=== PATIENT | female | born 1990 | race African-American/Black ===

== ENCOUNTER 2023-08-13 10:52 | Emergency (ER) | payer MEDICAID ==
[~2023-08-13] VITALS: Ht 170.2 cm; Wt 57.0 kg
[2023-08-13 11:05] VITALS: BP 145/105; PULSE 106; RESP 16; TEMP 98.1; O2SAT 98
[2023-08-13] MEDS ORDERED: ONDANSETRON HCL 4MG/2ML INJ IV STA (11:13)
[2023-08-13] MEDS: SODIUM CHLORIDE 0.9% 1,000 ML IV ONE (11:15)
[2023-08-13] MEDS ORDERED: KETOROLAC 15MG/ML VIAL IV ONE (11:45)
[2023-08-13] MEDS ORDERED: FAMOTIDINE 20MG/2ML VIAL IV ONE (11:45)
[2023-08-13 11:53] LABS: BASOPHILS % 0.6 % (0.0-2.0); DIFFERENTIAL COMMENT 0; EOSINOPHILS % 0.5 % (0.0-5.0); HEMATOCRIT. 36.5 % (36.0-48.0); HEMOGLOBIN. 11.7 g/dL (12.0-16.0); LYMPHOCYTES % 21.8 % (20.0-50.0); MEAN CORPUSCULAR HEMOGLOBIN 25.4 pg (28.0-32.0); MEAN CORPUSCULAR HGB CONC 32.1 g/dL (31.0-37.0); MEAN CORPUSCULAR VOLUME 78.9 fL (81.0-99.0); MEAN PLATELET VOLUME 9.1 fl (7.4-10.4); NEUTROPHILS % 68.1 % (40.0-76.0); PLATELET 313 x1000/uL (130-400); RED BLOOD CELL COUNT 4.62 mill/uL (4.2-5.4); RED CELL DISTRIBUTION WIDTH 15.2 % (11.6-14.6)
[2023-08-13 12:09] LABS: ALANINE AMINOTRANSFERASE < 7 IU/L (10-49); ASPARTATE AMINOTRANSFERASE 16 IU/L (<34); BILIRUBIN TOTAL 0.5 mg/dL (0.1-1.0); CALCIUM 9.5 mg/dL (8.7-10.4); CARBON DIOXIDE 27 mEq/L (21-32); CHLORIDE 103 mEq/L (98-107); CREATININE 0.8 mg/dL (0.6-1.0); GLUCOSE 90 mg/dL (70-105); POTASSIUM 3.8 mEq/L (3.5-5.1); PROTEIN TOTAL 8.7 g/dL (6.0-8.3); SODIUM 140 mEq/L (136-145); UREA NITROGEN BLOOD < 5 mg/dL (9-23)
[2023-08-13 12:16] LABS: HCG SCREEN NEGATIVE
[2023-08-13] MEDS: KETOROLAC 15MG/ML VIAL IV NR (13:23)
[2023-08-13] MEDS: ONDANSETRON HCL 4MG/2ML INJ IV NR (13:23)
[2023-08-13] MEDS: FAMOTIDINE 20MG/2ML VIAL IV NR (13:23)
[2023-08-13 14:43] LABS: CLARITY URINE CLEAR (CLEAR); COLOR URINE YELLOW (YELLOW); GLUCOSE URINE NEGATIVE (NEGATIVE); KETONES URINE 1+ (NEGATIVE); LEUKOCYTE ESTERASE URINE 1+ (NEGATIVE); NITRITE URINE NEGATIVE (NEGATIVE); OCCULT BLOOD URINE NEGATIVE (NEGATIVE); PH URINE 7.5 (4.5-8.0); PROTEIN URINE NEGATIVE (NEGATIVE)
[2023-08-13 14:52] LABS: BACTERIA URINE 1+; RBC URINE 0-2 /hpf (0-2); SQUAMOUS EPITHELIAL CELL URINE 2+ /lpf (RARE/1+); YEAST URINE NONE SEEN
[2023-08-13] MEDS ORDERED: NITR-87 MT (14:56)
[2023-08-13] MEDS ORDERED: ONDA4TAB50 MT (14:56)
[2023-08-13] MEDS ORDERED: ACET-2708 MT (14:56)
[2023-08-14] MEDS ORDERED: OLAN5TAB3 MT (03:29)
== END 2023-08-13 15:19 | disposition home or self-care (01) ==
LOC: ER 10:52
DX: R11.0 Nausea (principal); R19.7 Diarrhea, unspecified; R82.71 Bacteriuria; Z88.5 Allergy status to narcotic agent
CPT/HCPCS: 99285; 96374; 76705; 96375; 96361; 80053; 81003; 84703; 83690; 85025; 36415; J3490; J1885; J2405; J7030

== ENCOUNTER 2023-08-13 18:03 | Emergency (ER) | payer MEDICAID ==
[~2023-08-13] VITALS: Ht 170.2 cm; Wt 61.0 kg
[~2023-08-13 18:03] MED LIST: ACET-2708 MT; NITR-87 MT; ONDA4TAB50 MT
[2023-08-13 18:12] VITALS: TEMP 98.6; O2SAT 100
[2023-08-13 23:55] LABS: BASOPHILS % 0.7 % (0.0-2.0); DIFFERENTIAL COMMENT 0; EOSINOPHILS % 0.8 % (0.0-5.0); HEMATOCRIT. 34.6 % (36.0-48.0); HEMOGLOBIN. 11.2 g/dL (12.0-16.0); MEAN CORPUSCULAR HEMOGLOBIN 25.1 pg (28.0-32.0); MEAN CORPUSCULAR HGB CONC 32.3 g/dL (31.0-37.0); MEAN CORPUSCULAR VOLUME 77.7 fL (81.0-99.0); MEAN PLATELET VOLUME 8.7 fl (7.4-10.4); MONOCYTES % 9.1 % (2.0-8.0); NEUTROPHILS % 47.4 % (40.0-76.0); PLATELET 300 x1000/uL (130-400); RED BLOOD CELL COUNT 4.46 mill/uL (4.2-5.4); RED CELL DISTRIBUTION WIDTH 14.6 % (11.6-14.6)
[2023-08-14 00:12] LABS: ACETAMINOPHEN < 2 ug/mL (10-30); ALANINE AMINOTRANSFERASE < 7 IU/L (10-49); ALBUMIN 4.8 g/dL (3.2-4.8); ASPARTATE AMINOTRANSFERASE 15 IU/L (<34); BILIRUBIN TOTAL 0.6 mg/dL (0.1-1.0); CALCIUM 9.5 mg/dL (8.7-10.4); CARBON DIOXIDE 26 mEq/L (21-32); CHLORIDE 103 mEq/L (98-107); CREATININE 0.9 mg/dL (0.6-1.0); GLUCOSE 99 mg/dL (70-105); POTASSIUM 3.7 mEq/L (3.5-5.1); PROTEIN TOTAL 7.8 g/dL (6.0-8.3); SODIUM 139 mEq/L (136-145)
[2023-08-14 00:13] LABS: HCG SCREEN NEGATIVE
[2023-08-14 00:16] LABS: ETHANOL BLOOD < 10 mg/dL (<10); UREA NITROGEN BLOOD < 5 mg/dL (9-23)
[2023-08-14] MEDS ORDERED: OLAN5TAB3 MT (03:29)
[2023-08-14 03:44] VITALS: BP 166/84; PULSE 96; RESP 12
[2023-08-14] MEDS: KETOROLAC 15MG/ML VIAL IM ONE (03:44)
[2023-08-14] MEDS: ONDANSETRON 4MG ODT PO ONE (03:45)
== END 2023-08-14 03:50 | disposition home or self-care (01) ==
LOC: ER 18:03
DX: F31.9 Bipolar disorder, unspecified (principal); F20.9 Schizophrenia, unspecified; Z76.0 Encounter for issue of repeat prescription
CPT/HCPCS: 80053; 80307; 80329; 80320; 84703; 85025; 36415; 99283; 96372; Q0162; J1885; G0480